=== PATIENT | male | born 1995 | race Caucasian/White ===

== ENCOUNTER → 2016-12-03 | Day surgery (SDC) | payer OTHER ==
[~2016-12-03] MED LIST: APRISO0.375 GM PO; CIPRO750 MG PO; FLAGYL PO; PREDNISONE PO
--- NOTE | ~2016-12-03 | OR ---
Unit #: [id number] #: [id number] Patient: ADAM MENDOZA [id number] [address] [place], [place] [address] [id number] MR#: [id number] NAME: ADAM MENDOZA ROOM: Date of Procedure: 12/03/2016 Admission Date: 12/03/2016 Surgeon: Jd Ross M.D. : 1995 Attending Physician: Jd Ross M.D. Primary Care Physician: Med Estes M.D. OPERATIVE REPORT PREOPERATIVE DIAGNOSES The patient has history of ulcerative pancolitis on Apriso. He had a history of intermittent hematochezia and has come for elective examination to see if he is in remission or if bleeding related to active ulcerative colitis. PROCEDURES PERFORMED 1. Colonoscopy and biopsies. 2. Colonoscopy with polypectomy. POSTOPERATIVE DIAGNOSES The patient had mucosal changes suggestive of ulcerative colitis in remission. The examination was accomplished up to cecum. Extensive pseudopolyps were seen. However, one true adenoma was also seen in the sigmoid colon, which was removed using snare polypectomy. Biopsies obtained from the right colon, transverse colon, and left colon and sent for histology. The patient did not have any diverticulosis nor any hemorrhoids. RECOMMENDATIONS Reassurance is in order. The patient was advised to continue taking Apriso 4 tablets p.o. daily as before he will be seen in the office in 6 months' time. SEDATION USED MAC. DESCRIPTION OF PROCEDURE Following detailed explanation of potential risks and complications of a colonoscopy, namely perforation, bleeding, and complications related to sedation, the patient was brought to GI lab and laid in the left lateral decubitus position. A digital rectal examination was performed, which was normal. Lubricated tip of the Olympus video colonoscope was inserted through the anus and advanced under direct vision. The scope was advanced and passed up to sigmoid into descending colon. The mucosa throughout was normal. No diverticula were seen in this area. The scope tip was then navigated all the way up to cecum with visualization of the ileocecal valve and the appendiceal orifice. Preparation was good with good visualization. Successive segments of the colonic mucosa were examined upon withdrawal. The patient had extensive pseudopolyps with intervening normal mucosa as expected for ulcerative colitis in remission. In addition, a single sessile polyp was seen in the sigmoid colon which was Unit #: [id number] #: [id number] Patient: ADAM MENDOZA removed using snare polypectomy. Um Nurse biopsies obtained from the right colon, transverse colon, and left colon and sent for histology. The patient did not have any diverticulosis nor any hemorrhoids. The scope was then withdrawn. The patient returned to the recovery area. He tolerated the procedure without any postprocedure complications. Dictated by... Fadumo Elena/emory TD: 12/03/2016 16:52 JOB #: [id number] CC: Med Estes M.D. OPERATIVE REPORT Page 1 of 1 X Jd Ross MD X PROCEDURE OPERATIVE NOTE
== END | disposition home or self-care (01) ==
LOC: COPS 08:05
DX: D12.5 Benign neoplasm of sigmoid colon (principal); K52.9 Noninfective gastroenteritis and colitis, unspecified; K62.89 Other specified diseases of anus and rectum; Z79.899 Other long term (current) drug therapy; Z98.818 Other dental procedure status
CPT/HCPCS: 88305; J2250